=== PATIENT | female | born 1950 | race Hispanic/Latino ===

== ENCOUNTER 2024-06-20 06:40 | Day surgery (SDC) | payer MEDICARE ==
[~2024-06-20] VITALS: Ht 157.5 cm; Wt 63.5 kg
[2024-06-20] VITALS (10 sets, daily range): BP systolic 112–163; BP diastolic 46–79; PULSE 64–103; RESP 14–18; TEMP 97.4–98.1
[~2024-06-20 06:40] MED LIST: ACET-2521 PO; BUSP15 PO; ERGO500093 PO; ESOM40CA66 PO; FLUO10CA21 PO; METF-446 PO; METH2.5T6 PO; ONDA-104 SL; ROSU10TA72 PO; [UNRECOGNIZED DRUG - OTHER] PO
[2024-06-20] MEDS ORDERED: FLUT1BLS11 IH (07:18)
[2024-06-20] MEDS ORDERED: BENZ150C8 PO (07:18)
[2024-06-20] MEDS: 0.9%NACL 1000ML 1,000 ML IV ONE (07:21)
[2024-06-20] MEDS ORDERED: LIDOCAINE PF 100MG/5ML (2%) SYRINGE 5ML ONE (07:29)
[2024-06-20] MEDS ORDERED: proPOFol 10 MG/ML 20ML VIAL IV ONE (07:29)
--- NOTE | 2024-06-20 08:50 | NUR ---
Full and complete discharge instructions given to Patient and Family both verbally and in writing. Explained GI procedure precautions and follow up. All questions answered. PIV removed with catheter tip intact. Home with Family W/C to POV.
== END 2024-06-20 08:52 | disposition home or self-care (01) ==
LOC: ENDO 06:40 → DAH 06:40 → ENDO 08:52
PROVIDERS: ATTEND Surgery
DX: Z12.11 Encounter for screening for malignant neoplasm of colon (principal); K57.30 Diverticulosis of large intestine without perforation or abscess without bleeding; D12.2 Benign neoplasm of ascending colon; K63.5 Polyp of colon; K62.89 Other specified diseases of anus and rectum; E78.5 Hyperlipidemia, unspecified; F41.9 Anxiety disorder, unspecified; F32.A Depression, unspecified; M06.9 Rheumatoid arthritis, unspecified; E11.9 Type 2 diabetes mellitus without complications; Z79.899 Other long term (current) drug therapy; Z79.84 Long term (current) use of oral hypoglycemic drugs; Z85.528 Personal history of other malignant neoplasm of kidney; Z90.49 Acquired absence of other specified parts of digestive tract; Z98.891 History of uterine scar from previous surgery; Z96.659 Presence of unspecified artificial knee joint; Z98.890 Other specified postprocedural states; Z98.0 Intestinal bypass and anastomosis status
CPT/HCPCS: 45380; J7030; J2003; J2704; A4620; A4215 ×2; A4223; A4222; A4221; A4663; A4606; J3490